=== PATIENT | female | born 1945 | race Caucasian/White ===

== ENCOUNTER 2016-06-06 01:08 | Emergency (ER) | payer MEDICARE ==
[~2016-06-06] VITALS: Ht 160 cm; Wt 54.0 kg
[~2016-06-06 01:08] MED LIST: /PANT40TA PO; BEANTAB2 PO; DIOV80TA2 PO; ESTR PV; FISH1000 PO; FLUO20CA8 PO; LORA10TA2 PO; SYSTANE; VESI5TAB PO; [UNRECOGNIZED DRUG - CODE] OP; [UNRECOGNIZED DRUG - CODE] PO; premarin PO
[2016-06-06] MEDS ORDERED: VALS1TAB46 PO (01:41)
[2016-06-06] MEDS ORDERED: diphenhydrAMINE INJ 50MG/ML VIAL (J1200) IV STA (03:45)
[2016-06-06] MEDS ORDERED: NS 500 ML IV ONE ×2 (03:45→06:15)
[2016-06-06] MEDS ORDERED: METOCLOPRAMIDE INJ 10MG/2ML VIAL (J2765) IV ONE (03:45)
[2016-06-06 04:00] LABS: BASO % 0.1 % (0.0-1.0); EOS # 0.1 K/mm3 (0.0-0.50); LARGE UNSTAINED CELL % 0.4 % (0.0-4.0); LYMPH # 0.6 K/mm3 (1.5-4.5); LYMPH % 5.7 % (24.0-44.0); MEAN CORPUSCULAR HEMOGLOBIN 30.6 pg (27.0-33.0); MEAN CORPUSCULAR HGB CONC 32.9 g/dl (32.0-36.5); MEAN CORPUSCULAR VOLUME 93.3 fl (80.0-96.0); MONO # 0.2 K/mm3 (0.0-0.8); MONO % 2.3 % (0.0-5.0); NEUTROPHILS # 8.5 K/mm3 (1.8-7.7); NEUTROPHILS % 90.5 % (36.0-66.0); PLATELET COUNT, AUTOMATED 262 k/mm3 (150-450); RED CELL DISTRIBUTION WIDTH 12.7 % (11.5-14.5); WHITE BLOOD COUNT 9.4 K/mm3 (4.0-10.0)
[2016-06-06 04:12] LABS: ALBUMIN 3.6 GM/DL (3.2-5.2); ALBUMIN/GLOBULIN RATIO 1.06 (1.00-1.93); ALKALINE PHOSPHATASE 91 U/L (45-117); ALT/SGPT 19 U/L (12-78); AMYLASE 113 U/L (25-115); ANION GAP 13 MEQ/L (8-16); AST/SGOT 12 U/L (15-37); BILIRUBIN,DIRECT 0.1 MG/DL (0.0-0.2); BILIRUBIN,TOTAL 0.8 MG/DL (0.2-1.0); BLOOD UREA NITROGEN 14 MG/DL (7-18); CALCIUM LEVEL 8.9 MG/DL (8.8-10.2); CARBON DIOXIDE LEVEL 23 MEQ/L (21-32); CHLORIDE LEVEL 104 MEQ/L (98-107); CREATININE FOR GFR 0.86 MG/DL (0.55-1.02); GLOMERULAR FILTRATION RATE > 60.0 (>39); GLUCOSE, FASTING 120 MG/DL (83-110); POTASSIUM SERUM 3.1 MEQ/L (3.5-5.1); SODIUM LEVEL 140 MEQ/L (136-145)
[2016-06-06] MEDS ORDERED: ISOVUE-370 76% 100ML VIAL (Q9967) As Ordered ONE (04:50)
--- NOTE | 2016-06-06 05:40 | REPUSA ---
CLINICAL HISTORY: Abdominal pain. TECHNIQUE: Multiple axial, sagittal and coronal CT images were obtained through the abdomen and pelvi s after administration of intravenous contrast material. COMMENTS: Thickened, under distended stomach. Mild thickening and enhancement of the proximal small bowels. Mildly dilated fluid filled small bowels. Transition to normal caliber small bowel in the right lower quadrant. The liver is of uniform attenuation without mass or defect. There is no intra or extrahepatic biliary ductal dilatation. The spleen is normal. The gallbladder is within normal limits. The pancreas is of normal contour and attenuation characteristics. There is no evidence of adrenal mass. Both kidneys demonstrate prompt and equal nephrograms. The kidneys are normal in size, shape and conf iguration. There is no evidence of renal or ureteral mass. No renal or ureteral calculi are identifie d. There is no hydroureter or hydronephrosis. No evidence for appendicitis. There is no evidence of abdominal ascites or lymphadenopathy. There is no evidence of intrinsic or extrinsic bladder mass. There is no pelvic ascites or lymphadeno ramírez. Images of the lung bases show no evidence of pleural or parenchymal mass. There are no pleural effusi ons. Bilateral basilar atelectatic pulmonary changes. The bony structures are free of lytic or blastic lesions. Multilevel degenerative changes are seen in volving the thoracolumbar spine. Scattered calcifications are seen involving the aorta and major bran ches compatible with atherosclerosis. IMPRESSION: Gastritis. Enteritis/ileus. Clinical evaluation is suggested to exclude developing low grade partial bowel obstruction. Thickened bladder. No evidence of acute abdominal or pelvic pathology. Thank you for your kind referral of this patient.
[2016-06-06] MEDS ORDERED: REGL10TA6 PO (06:14)
[2016-06-06] MEDS ORDERED: POTASSIUM CHLORIDE 10 MEQ SR TABLET PO ONE (06:15)
[2016-06-06 06:40] VITALS: BP 117/58
== END 2016-06-06 07:02 | disposition home or self-care (01) ==
LOC: EDBD 01:08 → M ED 02:01
DX: K52.9 Noninfective gastroenteritis and colitis, unspecified (principal); I10 Essential (primary) hypertension; F41.9 Anxiety disorder, unspecified; K21.9 Gastro-esophageal reflux disease without esophagitis; G89.29 Other chronic pain; M54.9 Dorsalgia, unspecified; Z79.899 Other long term (current) drug therapy; J30.81 Allergic rhinitis due to animal (cat) (dog) hair and dander; J30.2 Other seasonal allergic rhinitis; Z88.5 Allergy status to narcotic agent; Z88.0 Allergy status to penicillin; Z88.2 Allergy status to sulfonamides; Z88.8 Allergy status to other drugs, medicaments and biological substances
CPT/HCPCS: 74177; 80048; 80076; 81001; 82150; 83605; 83690; 85025; 87086; 96361; 96374; 96375; 99283; J1200; J2765; Q9967

== ENCOUNTER → 2016-06-22 | Outpatient (REF) | payer MEDICARE ==
[~2016-06-22] MED LIST changes: +REGL10TA6 PO; +VALS1TAB46 PO
[2016-06-22 19:12] LABS: MEAN CORPUSCULAR VOLUME 90.9 fl (80.0-96.0); RED CELL DISTRIBUTION WIDTH 12.2 % (11.5-14.5); WHITE BLOOD COUNT 6.4 K/mm3 (4.0-10.0)
[2016-06-22 19:30] LABS: ALBUMIN 3.5 GM/DL (3.2-5.2); ALKALINE PHOSPHATASE 104 U/L (45-117); ALT/SGPT 18 U/L (12-78); ANION GAP 10 MEQ/L (8-16); AST/SGOT 10 U/L (15-37); BILIRUBIN,TOTAL 0.6 MG/DL (0.2-1.0); BLOOD UREA NITROGEN 13 MG/DL (7-18); CALCIUM LEVEL 9.1 MG/DL (8.8-10.2); CARBON DIOXIDE LEVEL 25 MEQ/L (21-32); CHLORIDE LEVEL 102 MEQ/L (98-107); CREATININE FOR GFR 0.87 MG/DL (0.55-1.02); GLOMERULAR FILTRATION RATE > 60.0 (>39); GLUCOSE, FASTING 74 MG/DL (83-110); POTASSIUM SERUM 4.3 MEQ/L (3.5-5.1); SODIUM LEVEL 137 MEQ/L (136-145)
== END ==
LOC: M SFHCPLAZ 16:16
PROVIDERS: ATTEND Nurse Practitioner Adult Health
DX: R19.7 Diarrhea, unspecified (principal)

== ENCOUNTER → 2017-06-25 | Outpatient (CLI) | payer MEDICARE ==
[2017-06-25 16:55] LABS: TOTAL 25(OH) VITAMIN D 72.2 NG/ML (30.0-100.0)
[2017-06-25 17:17] LABS: ALBUMIN 3.5 GM/DL (3.2-5.2); ALBUMIN/GLOBULIN RATIO 0.88 (1.00-1.93); ALKALINE PHOSPHATASE 114 U/L (45-117); ALT/SGPT 18 U/L (12-78); ANION GAP 8 MEQ/L (8-16); AST/SGOT 16 U/L (7-37); BILIRUBIN,TOTAL 0.9 MG/DL (0.2-1.0); BLOOD UREA NITROGEN 13 MG/DL (7-18); CALCIUM LEVEL 8.9 MG/DL (8.8-10.2); CARBON DIOXIDE LEVEL 27 MEQ/L (21-32); CHLORIDE LEVEL 104 MEQ/L (98-107); CHOLESTEROL LEVEL 261 MG/DL (<200); CHOLESTEROL RISK RATIO 2.485 (<5); GLOMERULAR FILTRATION RATE > 60.0 (>39); GLUCOSE, FASTING 77 MG/DL (70-100); HDL CHOLESTEROL 105 MG/DL (>40); LDL CHOLESTEROL 144.4 MG/DL (<100); NON-HDL-C 156 MG/DL; POTASSIUM SERUM 4.3 MEQ/L (3.5-5.1); SODIUM LEVEL 139 MEQ/L (136-145); TOTAL PROTEIN 7.5 GM/DL (6.4-8.2); TRIGLYCERIDES LEVEL 58 MG/DL (<150)
== END ==
LOC: M WUC 15:20
DX: Z00.00 Encounter for general adult medical examination without abnormal findings (principal); E55.9 Vitamin D deficiency, unspecified; E78.00 Pure hypercholesterolemia, unspecified
CPT/HCPCS: 84443

== ENCOUNTER → 2018-07-10 | Outpatient (REF) | payer MEDICARE ==
[~2018-07-10] MED LIST changes: -/PANT40TA PO; -ESTR PV; +ESTR1CRE PV; +PROT1TAB2 PO; -VALS1TAB46 PO; +VALS1TAB66 PO
[2018-07-10 18:56] LABS: ALBUMIN 3.6 GM/DL (3.2-5.2); ALT/SGPT 19 U/L (12-78); BILIRUBIN,TOTAL 0.6 MG/DL (0.2-1.0); BLOOD UREA NITROGEN 15 MG/DL (7-18); CALCIUM LEVEL 8.7 MG/DL (8.8-10.2); CARBON DIOXIDE LEVEL 28 MEQ/L (21-32); CHLORIDE LEVEL 107 MEQ/L (98-107); CHOLESTEROL LEVEL 275 MG/DL (<200); CHOLESTEROL RISK RATIO 2.522 (<5); CREATININE FOR GFR 0.73 MG/DL (0.55-1.30); GLOMERULAR FILTRATION RATE > 60.0 (>39); GLUCOSE, FASTING 80 MG/DL (70-100); HDL CHOLESTEROL 109 MG/DL (>40); LDL CHOLESTEROL 155 MG/DL (<100); MAGNESIUM LEVEL 1.9 MG/DL (1.8-2.4); NON-HDL-C 166 MG/DL; POTASSIUM SERUM 4.1 MEQ/L (3.5-5.1); SODIUM LEVEL 139 MEQ/L (136-145); THYROID STIMULATING HORMONE 0.799 uIU/ML (0.358-3.740); TOTAL PROTEIN 6.9 GM/DL (6.4-8.2); TRIGLYCERIDES LEVEL 55 MG/DL (<150)
[2018-07-10 20:56] LABS: TOTAL 25(OH) VITAMIN D 69.6 NG/ML (30.0-100.0)
== END ==
LOC: M SFHCPLAZ 15:41
PROVIDERS: ATTEND Nurse Practitioner Adult Health
DX: Z00.00 Encounter for general adult medical examination without abnormal findings (principal); E55.9 Vitamin D deficiency, unspecified; K21.9 Gastro-esophageal reflux disease without esophagitis; E78.00 Pure hypercholesterolemia, unspecified

== ENCOUNTER → 2018-11-14 | Outpatient (REF) | payer MEDICARE ==
[2018-11-14 13:49] LABS: BASO % 0.7 % (0.0-1.0); EOS # 0.2 10^3/uL (0.0-0.5); EOS % 4.4 % (0.0-3.0); HEMATOCRIT 35.3 % (36.0-47.0); HEMOGLOBIN 11.2 g/dl (12.0-15.5); LYMPH # 1.1 10^3/uL (1.5-5.0); LYMPH % 24.3 % (24.0-44.0); MEAN CORPUSCULAR HEMOGLOBIN 28.1 pg (27.0-33.0); MEAN CORPUSCULAR HGB CONC 31.7 g/dl (32.0-36.5); MEAN CORPUSCULAR VOLUME 88.7 fl (80.0-96.0); MONO # 0.5 10^3/uL (0.0-0.8); NEUTROPHILS # 2.5 10^3/uL (1.5-8.5); NEUTROPHILS % 58.4 % (36.0-66.0); PLATELET COUNT, AUTOMATED 286 10^3/uL (150-450); RED BLOOD COUNT 3.98 10^6/uL (4.00-5.40); WHITE BLOOD COUNT 4.3 10^3/uL (4.0-10.0)
[2018-11-14 14:12] LABS: HEMOGLOBIN A1c 5.6 %
[2018-11-14 14:24] LABS: ALBUMIN 3.4 GM/DL (3.2-5.2); ALT/SGPT 21 U/L (12-78); BILIRUBIN,TOTAL 0.4 MG/DL (0.2-1.0); BLOOD UREA NITROGEN 18 MG/DL (7-18); CALCIUM LEVEL 8.9 MG/DL (8.8-10.2); CARBON DIOXIDE LEVEL 30 MEQ/L (21-32); CHLORIDE LEVEL 103 MEQ/L (98-107); CREATININE FOR GFR 0.77 MG/DL (0.55-1.30); FOLATE > 24.0 NG/ML; GLOMERULAR FILTRATION RATE > 60.0 (>39); GLUCOSE, FASTING 77 MG/DL (70-100); POTASSIUM SERUM 4.3 MEQ/L (3.5-5.1); RHEUMATOID FACTOR QUANT < 10.0 IU/ML (<15.0); SODIUM LEVEL 139 MEQ/L (136-145); THYROID STIMULATING HORMONE 0.983 uIU/ML (0.358-3.740); TOTAL PROTEIN 7.3 GM/DL (6.4-8.2); VITAMIN B12 LEVEL 780 PG/ML
[2018-11-14 14:36] LABS: ERYTHROCYTE SEDIMENTATION RATE 14 mm/hr (0-30)
[2018-11-19 00:07] LABS: ANCA-ATYPICAL <1:20 titer (Neg:<1:20); ANTINUCLEAR ANTIBODIES DIRECT Negative (Negative); CYTOPLASMIC NEUTROP AB ANCA-C <1:20 titer (Neg:<1:20); PERINUCLEAR AB ANCA-P <1:20 titer (Neg:<1:20); SJOGREN'S ANTI SS-A <0.2 AI (0.0-0.9); SJOGREN'S ANTI SS-B <0.2 AI (0.0-0.9)
[2018-11-19 08:06] LABS: VITAMIN B1 LEVEL WHOLE BLOOD 81.5 nmol/L (66.5-200.0); VITAMIN B6,PYRIDOXAL PHOSPHATE 29.2 ug/L (2.0-32.8)
[2018-11-19 10:59] LABS: DRVV SCREEN 32.3 SEC
[2018-11-19 11:02] LABS: PTT LUPUS TYPE ANTICOAG SCREEN 0.8 (0-1.2)
[2018-11-20 15:34] LABS: ANTI DS-DNA AB <1:10 titer (.); VITAMIN E(ALPHA TOCOPHEROL) 20.2 mg/L (9.0-29.0); VITAMIN E(GAMMA TOCOPHEROL) 0.6 mg/L (0.5-4.9)
== END ==
LOC: M LABDRAWP 11:24
PROVIDERS: ATTEND Psychiatry & Neurology Neurology
DX: R41.9 Unspecified symptoms and signs involving cognitive functions and awareness (principal); Z79.899 Other long term (current) drug therapy

== ENCOUNTER → 2019-01-29 | Outpatient (CLI) | payer MEDICARE ==
--- NOTE | 2019-01-29 14:31 | REP ---
THYROID ULTRASOUND: Real-time sonographic evaluation of the thyroid performed. Right ovary measures 3.8 x 1.3 x 0.7 cm and left lobe 3.7 x 1.7 x 1.6 cm. Hypoechoic nodule in the lower right lobe measures 4 mm in diameter. Two hypoechoic nodules in the isthmus measure 7 x 6 x 3 mm and 5 x 6 x 3 mm. In the left lower pole, there is a mix solid and cystic nodule which measures 2.2 x 1.2 x 1.4 cm. IMPRESSION: Thyroid nodules as above. According to TI-RADS criteria, 6-month followup ultrasound is recommended. Electronically Signed by Tao Gonzalez MD 01/29/2019 03:40 P
== END ==
LOC: M RAD 12:42
PROVIDERS: ATTEND Physician Assistant Medical
DX: D34 Benign neoplasm of thyroid gland (principal)

== ENCOUNTER → 2019-02-17 | Outpatient (REF) | payer MEDICARE | LOC: M LAB REF 19:10 | PROVIDERS: ATTEND Internal Medicine Endocrinology, Diabetes & Metabolism | DX: E04.2 Nontoxic multinodular goiter (principal) ==

== ENCOUNTER → 2019-04-29 | Outpatient (REF) | payer MEDICARE | LOC: M SFHCWAGY 17:12 | PROVIDERS: ATTEND Nurse Practitioner Women's Health | DX: Z12.4 Encounter for screening for malignant neoplasm of cervix (principal); N95.2 Postmenopausal atrophic vaginitis ==

== ENCOUNTER → 2019-08-07 | Outpatient (REF) | payer MEDICARE | LOC: M LAB REF 17:07 | PROVIDERS: ATTEND Internal Medicine Endocrinology, Diabetes & Metabolism | DX: E04.2 Nontoxic multinodular goiter (principal) ==

== ENCOUNTER → 2019-10-13 | Outpatient (REF) | payer MEDICARE ==
[2019-11-26 15:35] LABS: BLOOD UREA NITROGEN 13 MG/DL (7-18); CALCIUM LEVEL 9.3 MG/DL (8.8-10.2); CARBON DIOXIDE LEVEL 28 MEQ/L (21-32); CHLORIDE LEVEL 104 MEQ/L (98-107); CREATININE FOR GFR 0.91 MG/DL (0.55-1.30); GLOMERULAR FILTRATION RATE > 60.0 (>39); GLUCOSE, FASTING 116 MG/DL (70-100); POTASSIUM SERUM 4.3 MEQ/L (3.5-5.1); SODIUM LEVEL 139 MEQ/L (136-145); TOTAL 25(OH) VITAMIN D 57.6 NG/ML (30.0-100.0)
== END ==
LOC: M WUC 11:26
PROVIDERS: ATTEND Nurse Practitioner Family
DX: M81.0 Age-related osteoporosis without current pathological fracture (principal)

== ENCOUNTER → 2020-02-09 | Outpatient (CLI) | payer MEDICARE ==
[2020-02-09 16:08] LABS: BLOOD UREA NITROGEN 19 MG/DL (7-18); CALCIUM LEVEL 9.8 MG/DL (8.8-10.2); CARBON DIOXIDE LEVEL 31 MEQ/L (21-32); CHLORIDE LEVEL 105 MEQ/L (98-107); CREATININE FOR GFR 0.83 MG/DL (0.55-1.30); GLOMERULAR FILTRATION RATE > 60.0 (>39); GLUCOSE, FASTING 116 MG/DL (70-100); POTASSIUM SERUM 3.7 MEQ/L (3.5-5.1); SODIUM LEVEL 138 MEQ/L (136-145)
== END ==
LOC: M WUC 14:33
PROVIDERS: ATTEND Internal Medicine Endocrinology, Diabetes & Metabolism
DX: M81.0 Age-related osteoporosis without current pathological fracture (principal)

== ENCOUNTER → 2020-07-27 | Outpatient (REF) | payer MEDICARE ==
[2020-07-27 18:13] LABS: ALBUMIN 3.5 GM/DL (3.2-5.2); ALT/SGPT 29 U/L (12-78); BILIRUBIN,TOTAL 0.7 MG/DL (0.2-1.0); BLOOD UREA NITROGEN 20 MG/DL (7-18); CALCIUM LEVEL 9.6 MG/DL (8.8-10.2); CARBON DIOXIDE LEVEL 29 MEQ/L (21-32); CHLORIDE LEVEL 105 MEQ/L (98-107); CHOLESTEROL LEVEL 276 MG/DL (<200); CHOLESTEROL RISK RATIO 2.442 (<5); CREATININE FOR GFR 0.81 MG/DL (0.55-1.30); GLOMERULAR FILTRATION RATE > 60.0 (>39); GLUCOSE, FASTING 61 MG/DL (70-100); HDL CHOLESTEROL 113 MG/DL (>40); LDL CHOLESTEROL 154 MG/DL (<100); NON-HDL-C 163 MG/DL; POTASSIUM SERUM 3.9 MEQ/L (3.5-5.1); SODIUM LEVEL 140 MEQ/L (136-145); THYROID STIMULATING HORMONE 0.596 uIU/ML (0.358-3.740); TOTAL 25(OH) VITAMIN D 59.6 NG/ML (30.0-100.0); TOTAL PROTEIN 7.2 GM/DL (6.4-8.2); TRIGLYCERIDES LEVEL 46 MG/DL (<150)
== END ==
LOC: M SFHCPLAZ 14:40
PROVIDERS: ATTEND Nurse Practitioner Adult Health
DX: E55.9 Vitamin D deficiency, unspecified (principal); E78.00 Pure hypercholesterolemia, unspecified; E04.1 Nontoxic single thyroid nodule; I10 Essential (primary) hypertension

== ENCOUNTER → 2020-10-11 | Outpatient (CLI) | payer MEDICARE ==
[2020-10-11 18:29] LABS: BLOOD UREA NITROGEN 19 MG/DL (7-18); CALCIUM LEVEL 9.2 MG/DL (8.8-10.2); CARBON DIOXIDE LEVEL 28 MEQ/L (21-32); CHLORIDE LEVEL 107 MEQ/L (98-107); CREATININE FOR GFR 0.74 MG/DL (0.55-1.30); GLOMERULAR FILTRATION RATE > 60.0 (>39); GLUCOSE, FASTING 92 MG/DL (70-100); POTASSIUM SERUM 4.4 MEQ/L (3.5-5.1); SODIUM LEVEL 141 MEQ/L (136-145)
[2020-10-11 18:40] LABS: TOTAL 25(OH) VITAMIN D 63.5 NG/ML (30.0-100.0)
== END ==
LOC: M LAB 17:21
PROVIDERS: ATTEND Internal Medicine Endocrinology, Diabetes & Metabolism
DX: M81.0 Age-related osteoporosis without current pathological fracture (principal)

== ENCOUNTER → 2021-06-30 | Outpatient (CLI) | payer MEDICARE | LOC: M WHC 13:57 | PROVIDERS: ATTEND Nurse Practitioner Adult Health | DX: E04.1 Nontoxic single thyroid nodule (principal) ==

== ENCOUNTER → 2021-11-28 | Outpatient (CLI) | payer MEDICARE | LOC: M WUC 15:41 | PROVIDERS: ATTEND Physician Assistant | DX: M54.6 Pain in thoracic spine (principal) ==

== ENCOUNTER → 2022-01-06 | Outpatient (CLI) | payer MEDICARE | LOC: M RAD 17:15 | PROVIDERS: ATTEND Nurse Practitioner Adult Health | DX: S09.90XA Unspecified injury of head, initial encounter (principal); W19.XXXA Unspecified fall, initial encounter ==

== ENCOUNTER → 2022-09-15 | Outpatient (REF) | payer MEDICARE | LOC: M WUC 19:56 | PROVIDERS: ATTEND Physician Assistant | DX: R30.0 Dysuria (principal) ==

== ENCOUNTER → 2023-02-28 | Outpatient (REF) | payer MEDICARE ==
[2023-02-28 15:55] LABS: RSV AMPLIFICATION NEGATIVE (NEGATIVE)
== END ==
PROVIDERS: ATTEND Nurse Practitioner Adult Health
DX: R09.89 Other specified symptoms and signs involving the circulatory and respiratory systems (principal)

== ENCOUNTER → 2023-07-09 | Outpatient (REF) | payer MEDICARE ==
[2023-07-09 11:22] LABS: HEMATOCRIT 39.5 % (36.0-47.0); HEMOGLOBIN 13.1 g/dl (12.0-15.5); MEAN CORPUSCULAR HEMOGLOBIN 31.3 pg (27.0-33.0); MEAN CORPUSCULAR HGB CONC 33.2 g/dl (32.0-36.5); MEAN CORPUSCULAR VOLUME 94.3 fl (80.0-96.0); PLATELET COUNT, AUTOMATED 241 10^3/uL (150-450); RED BLOOD COUNT 4.19 10^6/uL (4.00-5.40); WHITE BLOOD COUNT 5.3 10^3/uL (4.0-10.0)
[2023-07-09 11:50] LABS: FREE T4 1.03 NG/DL (0.89-1.76)
[2023-07-09 11:51] LABS: ALBUMIN 3.1 G/DL (3.2-5.2); ALKALINE PHOSPHATASE 101 U/L (46-116); ALT/SGPT 18 U/L (7.0-40); AST/SGOT 10 U/L (<34); BLOOD UREA NITROGEN 19 MG/DL (9-23); CALCIUM LEVEL 9.1 MG/DL (8.3-10.6); CARBON DIOXIDE LEVEL 26 MMOL/L (20-31); CHLORIDE LEVEL 108 MMOL/L (98-107); CHOLESTEROL LEVEL 234 MG/DL (<200); CHOLESTEROL RISK RATIO 3.18 (<5); CREATININE FOR GFR 0.85 MG/DL (0.55-1.30); FERRITIN 22.3 NG/ML (7.3-270.7); GLOMERULAR FILTRATION RATE > 60.0 (>39); GLUCOSE, FASTING 82 MG/DL (74-106); HDL CHOLESTEROL 73.5 MG/DL (>40); LDL CHOLESTEROL 148.7 MG/DL (<100); MAGNESIUM LEVEL 1.9 MG/DL (1.8-2.4); NON-HDL-C 160.5 MG/DL; POTASSIUM SERUM 4.4 MMOL/L (3.5-5.1); SODIUM LEVEL 140 MMOL/L (136-145); TOTAL 25(OH) VITAMIN D 66.2 NG/ML (20.0-100.0); TOTAL PROTEIN 6.2 G/DL (5.7-8.2); TRIGLYCERIDES LEVEL 59 MG/DL (<150)
== END ==
PROVIDERS: ATTEND Nurse Practitioner Adult Health
DX: F41.9 Anxiety disorder, unspecified (principal); I10 Essential (primary) hypertension; K21.9 Gastro-esophageal reflux disease without esophagitis; E78.00 Pure hypercholesterolemia, unspecified; Z79.899 Other long term (current) drug therapy; Z86.39 Personal history of other endocrine, nutritional and metabolic disease

== ENCOUNTER → 2023-11-21 | Outpatient (CLI) | payer MEDICARE ==
[2023-11-21 15:07] LABS: HEMATOCRIT 39.5 % (36.0-47.0); HEMOGLOBIN 13.1 g/dl (12.0-15.5); MEAN CORPUSCULAR HEMOGLOBIN 31.3 pg (27.0-33.0); MEAN CORPUSCULAR HGB CONC 33.2 g/dl (32.0-36.5); MEAN CORPUSCULAR VOLUME 94.5 fl (80.0-96.0); PLATELET COUNT, AUTOMATED 247 10^3/uL (150-450); RED BLOOD COUNT 4.18 10^6/uL (4.00-5.40); WHITE BLOOD COUNT 6.6 10^3/uL (4.0-10.0)
[2023-11-21 15:37] LABS: ALBUMIN 3.6 G/DL (3.2-5.2); ALKALINE PHOSPHATASE 108 U/L (46-116); ALT/SGPT 16 U/L (7.0-40); AST/SGOT 10 U/L (<34); BLOOD UREA NITROGEN 18 MG/DL (9-23); CARBON DIOXIDE LEVEL 28 MMOL/L (20-31); CHLORIDE LEVEL 107 MMOL/L (98-107); CHOLESTEROL LEVEL 285 MG/DL (<200); CHOLESTEROL RISK RATIO 4.31 (<5); CREATININE FOR GFR 0.85 MG/DL (0.55-1.30); GLOMERULAR FILTRATION RATE > 60.0 (>39); GLUCOSE, FASTING 86 MG/DL (74-106); HDL CHOLESTEROL 66.1 MG/DL (>40); LDL CHOLESTEROL 187.9 MG/DL (<100); NON-HDL-C 218.9 MG/DL; POTASSIUM SERUM 4.2 MMOL/L (3.5-5.1); SODIUM LEVEL 140 MMOL/L (136-145); TOTAL PROTEIN 6.8 G/DL (5.7-8.2); TRIGLYCERIDES LEVEL 155 MG/DL (<150)
[2023-11-21 15:38] LABS: FERRITIN 34.6 NG/ML (7.3-270.7); FREE T4 1.15 NG/DL (0.89-1.76); THYROID STIMULATING HORMONE 0.521 uIU/ML (0.55-4.78); TOTAL 25(OH) VITAMIN D 70.2 NG/ML (20.0-100.0)
[2023-11-21 15:39] LABS: VITAMIN B12 LEVEL 818 PG/ML (211-911)
== END ==
LOC: M PLALAB 14:02
PROVIDERS: ATTEND Nurse Practitioner Adult Health
DX: F41.9 Anxiety disorder, unspecified (principal); I10 Essential (primary) hypertension; E78.00 Pure hypercholesterolemia, unspecified; R53.83 Other fatigue; E55.9 Vitamin D deficiency, unspecified

== ENCOUNTER 2023-12-01 12:28 | Emergency (ER) | payer MEDICARE ==
[~2023-12-01] VITALS: Ht 167.6 cm; Wt 49.1 kg
[2023-12-01 13:14] LABS: BASO % 0.5 % (0.0-1.0); EOS # 0.2 10^3/uL (0.0-0.5); EOS % 2.5 % (0.0-3.0); HEMATOCRIT 41.1 % (36.0-47.0); HEMOGLOBIN 13.8 g/dl (12.0-15.5); LYMPH # 1.1 10^3/uL (1.5-5.0); LYMPH % 18.3 % (24.0-44.0); MEAN CORPUSCULAR HEMOGLOBIN 31.6 pg (27.0-33.0); MEAN CORPUSCULAR HGB CONC 33.6 g/dl (32.0-36.5); MEAN CORPUSCULAR VOLUME 94.1 fl (80.0-96.0); MONO # 0.5 10^3/uL (0.0-0.8); NEUTROPHILS # 4.2 10^3/uL (1.5-8.5); NEUTROPHILS % 70.4 % (36.0-66.0); PLATELET COUNT, AUTOMATED 244 10^3/uL (150-450); RED BLOOD COUNT 4.37 10^6/uL (4.00-5.40)
[2023-12-01 13:44] LABS: ALBUMIN 3.7 G/DL (3.2-5.2); ALKALINE PHOSPHATASE 121 U/L (46-116); ALT/SGPT 18 U/L (7.0-40); AST/SGOT 16 U/L (<34); BILIRUBIN,DIRECT 0.2 MG/DL (<0.4); BILIRUBIN,TOTAL 0.9 MG/DL (0.3-1.2); BLOOD UREA NITROGEN 16 MG/DL (9-23); CALCIUM LEVEL 9.6 MG/DL (8.3-10.6); CARBON DIOXIDE LEVEL 27 MMOL/L (20-31); CHLORIDE LEVEL 105 MMOL/L (98-107); CK-MB VALUE MASS < 1.0 NG/ML (<3.6); CREATININE FOR GFR 0.76 MG/DL (0.55-1.30); GLOMERULAR FILTRATION RATE > 60.0 (>39); GLUCOSE, FASTING 84 MG/DL (74-106); POTASSIUM SERUM 4.3 MMOL/L (3.5-5.1); SODIUM LEVEL 137 MMOL/L (136-145)
[2023-12-01 13:51] LABS: CPK CREATINE PHOSPHOKINASE 36 U/L (34-145); MB/CK RELATIVE INDEX 2.77 (< OR =4)
[2023-12-01 16:13] LABS: CK-MB VALUE MASS < 1.0 NG/ML (<3.6)
[2023-12-01 16:14] LABS: CPK CREATINE PHOSPHOKINASE 36 U/L (34-145); MB/CK RELATIVE INDEX 2.77 (< OR =4)
[2023-12-01 16:38] VITALS: BP 152/71; TEMP 98.4; O2SAT 98
== END 2023-12-01 16:55 | disposition home or self-care (01) ==
LOC: M ED 12:28 → EDBD 12:28 → M ED 16:55
DX: R07.9 Chest pain, unspecified (principal); R00.1 Bradycardia, unspecified; K58.9 Irritable bowel syndrome, unspecified; K21.9 Gastro-esophageal reflux disease without esophagitis; F03.90 Unspecified dementia, unspecified severity, without behavioral disturbance, psychotic disturbance, mood disturbance, and anxiety; Z88.0 Allergy status to penicillin; Z88.1 Allergy status to other antibiotic agents; Z88.5 Allergy status to narcotic agent; Z88.2 Allergy status to sulfonamides; Z88.8 Allergy status to other drugs, medicaments and biological substances; Z91.048 Other nonmedicinal substance allergy status; Z79.899 Other long term (current) drug therapy

== ENCOUNTER → 2024-02-04 | Outpatient (CLI) | payer MEDICARE ==
[2024-02-04 20:47] LABS: ALBUMIN 3.8 G/DL (3.2-5.2); BILIRUBIN,TOTAL 0.9 MG/DL (0.3-1.2); CALCIUM LEVEL 10.4 MG/DL (8.3-10.6); CREATININE FOR GFR 1.19 MG/DL (0.55-1.30); GLOMERULAR FILTRATION RATE 46.8 (>39); POTASSIUM SERUM 4.7 MMOL/L (3.5-5.1); TOTAL PROTEIN 7.1 G/DL (5.7-8.2)
== END ==
LOC: M PLALAB 14:53
PROVIDERS: ATTEND Nurse Practitioner Adult Health
DX: I10 Essential (primary) hypertension (principal)

== ENCOUNTER → 2024-06-24 | Outpatient (REF) | payer MEDICARE | LOC: M SFHCPLAZ 17:33 | PROVIDERS: ATTEND Nurse Practitioner Adult Health | DX: R41.0 Disorientation, unspecified (principal) ==

== ENCOUNTER 2024-11-19 08:35 | Inpatient (IN) | payer MEDICARE ==
[~2024-11-19] VITALS: Ht 167.6 cm; Wt 52.9 kg
[2024-11-19 09:15] LABS: BASO # 0.0 10^3/uL (0.0-0.2); BASO % 0.4 % (0.0-1.0); EOS # 0.2 10^3/uL (0.0-0.5); EOS % 2.1 % (0.0-3.0); LYMPH # 0.7 10^3/uL (1.5-5.0); LYMPH % 7.9 % (24.0-44.0); MONO # 0.9 10^3/uL (0.0-0.8); MONO % 9.6 % (2.0-8.0); NEUTROPHILS # 7.3 10^3/uL (1.5-8.5); NEUTROPHILS % 79.5 % (36.0-66.0); PLATELET COUNT, AUTOMATED 300 10^3/uL (150-450)
[2024-11-19] MEDS: ACETAMINOPHEN *IV* 1,000 MG in IV 1 EA IV ONE (09:19)
[2024-11-19 09:24] LABS: INR 0.95
[2024-11-19] MEDS ORDERED: BUSP15TA47 PO (09:31)
[2024-11-19] MEDS ORDERED: REXU1TAB4 PO (09:31)
[2024-11-19] MEDS ORDERED: FLUO40CA PO (09:31)
[2024-11-19] MEDS ORDERED: VIAC1CHW PO (09:31)
[2024-11-19] MEDS ORDERED: D-20TAB PO (09:31)
[2024-11-19] MEDS ORDERED: PANT40TA29 PO (09:31)
[2024-11-19] MEDS ORDERED: SERO1TAB3 PO (09:31)
[2024-11-19] MEDS ORDERED: THERTAB52 PO (09:31)
[2024-11-19] MEDS ORDERED: HOME MED LIST COMPLETE! XX SCH (09:35)
[2024-11-19 09:47] LABS: CK-MB VALUE MASS 1.5 NG/ML (<3.6)
[2024-11-19 09:48] LABS: CPK CREATINE PHOSPHOKINASE 47.0 U/L (34-145); MB/CK RELATIVE INDEX 3.19 (< OR =4)
[2024-11-19 09:49] LABS: ALT/SGPT 21.0 U/L (7.0-40); AST/SGOT 18.0 U/L (<34); CALCIUM LEVEL 9.5 MG/DL (8.3-10.6); CARBON DIOXIDE LEVEL 27.0 MMOL/L (20-31); CHLORIDE LEVEL 104.0 MMOL/L (98-107); CREATININE FOR GFR 0.83 MG/DL (0.55-1.30); GLOMERULAR FILTRATION RATE 72.1 (>39); POTASSIUM SERUM 4.2 MMOL/L (3.5-5.1); SODIUM LEVEL 136.0 MMOL/L (136-145)
[2024-11-19 10:50] LABS: CK-MB VALUE MASS 1.1 NG/ML (<3.6)
[2024-11-19 10:57] LABS: CPK CREATINE PHOSPHOKINASE 46.0 U/L (34-145); MB/CK RELATIVE INDEX 2.39 (< OR =4)
[2024-11-19] MEDS ORDERED: KETOROLAC 30 MG/ML 1 ML VIAL IV PRN (11:10)
[2024-11-19] MEDS: NS (Normal Saline) 0.9% 1,000 ML IV ONE (11:18)
[2024-11-19] MEDS: MORPHINE 2 MG/ML 1 ML VIAL IV ONE (11:26)
[2024-11-19] MEDS: D5W/0.45% SODIUM CHLORIDE 1,000 ML IV SCH (11:27)
[2024-11-19] MEDS: hydrALAZINE 20 MG/ML 1 ML VIAL IV STA (13:14)
[2024-11-19] MEDS: NITROGLYCERIN 2% OINT 1 GM *U/D* PKT TOP ONE (14:08)
[2024-11-19 14:58] LABS: KETONE, URINE AUTO RFX NEGATIVE (NEGATIVE); LEUKOCYTE ESTERASE UR AUTO RFX NEGATIVE (NEGATIVE); NITRITE, URINE AUTO RFX NEGATIVE (NEGATIVE); RBC, URINE AUTO RFX 1 /HPF (0-3); SQUAM EPITHELIAL CELL UR AURFX 0 /HPF (0-6); WBC, URINE AUTO RFX 1 /HPF (0-3)
[2024-11-19] MEDS ORDERED: MORPHINE 4 MG/ML 1 ML VIAL IV PRN (15:30)
[2024-11-19] MEDS ORDERED: ROCURONIUM BROMIDE 50MG/5ML VIAL As Ordered ONE (15:35)
[2024-11-19] MEDS ORDERED: LIDOCAINE 2% 100 MG/5 ML SDV (FOR ANES.) As Ordered ONE (15:35)
[2024-11-19] MEDS ORDERED: SUGAMMADEX SODIUM 200 MG/2 ML VIAL As Ordered ONE (15:36)
[2024-11-19] MEDS ORDERED: dexAMETHasone 4 MG/ML 1 ML VIAL As Ordered ONE (15:36)
[2024-11-19] MEDS ORDERED: ONDANSETRON 4MG 2ML VIAL As Ordered ONE (15:36)
[2024-11-19] MEDS: TRANEXAMIC ACID 100 MG/ML 10ML VIAL As Ordered ONE (16:55)
[2024-11-19] MEDS ORDERED: PHENYLephrine 500MCG 5ML (100MCG/ML) SYRINGE As Ordered ONE (17:11)
[2024-11-19] MEDS ORDERED: HYDROmorphone HCL 2 MG/ML 1 ML VIAL As Ordered ONE (17:26)
[2024-11-19] MEDS ORDERED: KETOROLAC 30 MG/ML 1 ML VIAL As Ordered ONE (17:55)
[2024-11-19] MEDS: VANCOMYCIN 1000MG/20ML VIAL As Ordered ONE (17:55)
[2024-11-19] MEDS: hydrALAZINE 20 MG/ML 1 ML VIAL IV SCH (18:00)
[2024-11-19] MEDS ORDERED: HYDROMORPHONE HCL 0.5 MG/0.5 ML SYRINGE IV PRN (18:05)
[2024-11-19] MEDS ORDERED: ONDANSETRON 4MG 2ML VIAL IV PRN (18:05)
[2024-11-19] MEDS ORDERED: LABETALOL 100 MG/20 ML VIAL As Ordered ONE (18:11)
[2024-11-19] MEDS ORDERED: hydrALAZINE 20 MG/ML 1 ML VIAL IV PRN (18:25)
[2024-11-19] MEDS: ONDANSETRON 4MG 2ML VIAL IV PRN (20:02)
[2024-11-19 20:07] VITALS: BP 129/61; TEMP 97.5; O2SAT 99
[2024-11-19 20:30] VITALS: BP 111/55; TEMP 97; O2SAT 99
[2024-11-19 22:14] VITALS: BP 105/54; TEMP 96.8; O2SAT 99
[2024-11-19 23:20] VITALS: BP 97/54; TEMP 97.6; O2SAT 98
[2024-11-19] MEDS: ceFAZolin SOD 1 GM in DEXTROSE 5% (D5W) ADV/MINI-BAG 50 ML IV SCH (23:23)
[2024-11-20 04:07] VITALS: BP 117/58; TEMP 97.5; O2SAT 99
[2024-11-20 06:22] LABS: PLATELET COUNT, AUTOMATED 241 10^3/uL (150-450)
[2024-11-20 07:01] LABS: CALCIUM LEVEL 7.9 MG/DL (8.3-10.6); CARBON DIOXIDE LEVEL 23.0 MMOL/L (20-31); CHLORIDE LEVEL 104.0 MMOL/L (98-107); CREATININE FOR GFR 0.72 MG/DL (0.55-1.30); GLOMERULAR FILTRATION RATE 85.5 (>39); POTASSIUM SERUM 4.1 MMOL/L (3.5-5.1); SODIUM LEVEL 134.0 MMOL/L (136-145)
[2024-11-20 08:00] VITALS: BP 123/56; TEMP 97.4
[2024-11-20] MEDS: ACETAMINOPHEN 500 MG TAB PO SCH (08:42)
[2024-11-20] MEDS: **hydrALAZINE** 10 MG TAB PO SCH (08:43)
[2024-11-20 15:51] VITALS: BP 131/60; TEMP 97.1; O2SAT 93
[2024-11-20] MEDS: ENOXAPARIN 40 MG/0.4 ML SYRINGE (J1650 PER 10MG) SC SCH (18:03)
[2024-11-20 19:20] VITALS: BP 124/59; TEMP 98.6; O2SAT 93
[2024-11-20] MEDS: amLODIPine 10 MG TAB PO SCH (20:02)
[2024-11-20] MEDS: MORPHINE 4 MG/ML 1 ML VIAL IV ONE (20:30)
[2024-11-21 03:22] VITALS: BP 150/67; TEMP 97.5; O2SAT 90
[2024-11-21 06:30] LABS: PLATELET COUNT, AUTOMATED 255 10^3/uL (150-450)
[2024-11-21 06:56] LABS: CALCIUM LEVEL 8.6 MG/DL (8.3-10.6); CARBON DIOXIDE LEVEL 25.0 MMOL/L (20-31); CHLORIDE LEVEL 104.0 MMOL/L (98-107); CREATININE FOR GFR 0.7 MG/DL (0.55-1.30); GLOMERULAR FILTRATION RATE 88.5 (>39); POTASSIUM SERUM 4.3 MMOL/L (3.5-5.1); SODIUM LEVEL 136.0 MMOL/L (136-145)
[2024-11-21 07:58] VITALS: BP 122/56; TEMP 98.1; O2SAT 92
[2024-11-21] MEDS ORDERED: PILL CUTTER 1 EACH XX ONE (08:05)
[2024-11-21 13:26] LABS: ERYTHROCYTE SEDIMENTATION RATE 28 mm/hr (0-30)
[2024-11-21 13:34] LABS: C REACTIVE PROTEIN QUANTITATIV 13.15 MG/DL (<1.0)
[2024-11-21 15:50] VITALS: BP 121/59; TEMP 98.5; O2SAT 94
[2024-11-21 16:52] LABS: KETONE, URINE AUTO RFX NEGATIVE (NEGATIVE); LEUKOCYTE ESTERASE UR AUTO RFX NEGATIVE (NEGATIVE); MUCUS, URINE RFX SMALL (NEGATIVE); NITRITE, URINE AUTO RFX NEGATIVE (NEGATIVE); RBC, URINE AUTO RFX 28 /HPF (0-3); SQUAM EPITHELIAL CELL UR AURFX 0 /HPF (0-6); WBC, URINE AUTO RFX 3 /HPF (0-3)
[2024-11-21 19:37] VITALS: BP 119/58; TEMP 97.9; O2SAT 94
[2024-11-22 04:29] VITALS: BP 146/66; TEMP 98.5; O2SAT 95
[2024-11-22 05:51] LABS: PLATELET COUNT, AUTOMATED 244 10^3/uL (150-450)
[2024-11-22 06:19] LABS: CALCIUM LEVEL 8.3 MG/DL (8.3-10.6); CARBON DIOXIDE LEVEL 27 MMOL/L (20-31); CHLORIDE LEVEL 103 MMOL/L (98-107); CREATININE FOR GFR 0.60 MG/DL (0.55-1.30); GLOMERULAR FILTRATION RATE > 90.0 (>39); POTASSIUM SERUM 4.2 MMOL/L (3.5-5.1); SODIUM LEVEL 136 MMOL/L (136-145)
[2024-11-22 09:31] VITALS: BP 130/75; TEMP 98.2; O2SAT 96
[2024-11-22] MEDS ORDERED: ACET-683 PO (10:27)
[2024-11-22] MEDS ORDERED: AMLO1TAB25 PO (10:27)
[2024-11-22] MEDS ORDERED: HYDR-161 PO (10:27)
[2024-11-22] MEDS ORDERED: OXYC-517 PO (10:27)
[2024-11-22 12:00] VITALS: BP 138/65; TEMP 99.4; O2SAT 95
[2024-11-22 18:56] VITALS: BP 132/98; TEMP 96.5; O2SAT 96
[2024-11-22 20:00] VITALS: BP 135/86; TEMP 98.8; O2SAT 98
[2024-11-22 20:09] VITALS: BP 140/68; TEMP 98.1; O2SAT 97
[2024-11-22] MEDS: busPIRone 5 MG TAB PO SCH (22:51)
[2024-11-23 05:32] VITALS: BP 121/58; TEMP 97.5; O2SAT 96
[2024-11-23] MEDS: FLUoxetine 20 MG CAP PO SCH (08:46)
[2024-11-23 12:00] VITALS: BP 116/56; TEMP 97.7; O2SAT 94
[2024-11-23 20:46] VITALS: BP 143/71; TEMP 97.9; O2SAT 91
[2024-11-24 06:20] VITALS: BP 141/65; TEMP 98.1; O2SAT 95
[2024-11-24 08:21] VITALS: BP 139/67
[2024-11-24] MEDS ORDERED: XARE10TA PO (10:30)
== END 2024-11-24 11:17 | DRG 522 ==
LOC: EDBD 08:35 → M ED 11:06 → M ED INP 11:07 → M PCU 19:54 → M MSPAV 11-22 20:06
PROVIDERS: ADMIT General Practice; ATTEND General Practice
PROC: 0SRR0JZ Replacement of Right Hip Joint, Femoral Surface with Synthetic Substitute, Open Approach (ICD-10-PCS; principal; 2024-11-19 13:45)
DX: S72.001A Fracture of unspecified part of neck of right femur, initial encounter for closed fracture (principal); I16.0 Hypertensive urgency; I50.9 Heart failure, unspecified; K21.9 Gastro-esophageal reflux disease without esophagitis; I11.0 Hypertensive heart disease with heart failure; M81.0 Age-related osteoporosis without current pathological fracture; Z66 Do not resuscitate; W18.30XA Fall on same level, unspecified, initial encounter; Y92.129 Unspecified place in nursing home as the place of occurrence of the external cause; D72.829 Elevated white blood cell count, unspecified; F03.90 Unspecified dementia, unspecified severity, without behavioral disturbance, psychotic disturbance, mood disturbance, and anxiety; Z85.828 Personal history of other malignant neoplasm of skin; Z88.2 Allergy status to sulfonamides; Z88.0 Allergy status to penicillin; Z88.5 Allergy status to narcotic agent; Z88.8 Allergy status to other drugs, medicaments and biological substances; Z79.899 Other long term (current) drug therapy; Z91.048 Other nonmedicinal substance allergy status

== ENCOUNTER → 2024-11-26 | Outpatient (REF) ==
[~2024-11-26] MED LIST changes: +ACET-683 PO; +AMLO1TAB25 PO; +BUSP15TA47 PO; +D-20TAB PO; +FLUO40CA PO; +HYDR-161 PO; +OXYC-517 PO; +PANT40TA29 PO; +REXU1TAB4 PO; +SERO1TAB3 PO; +THERTAB52 PO; +VIAC1CHW PO; +XARE10TA PO
[2024-11-26 13:31] LABS: PLATELET COUNT, AUTOMATED 498 10^3/uL (150-450)
[2024-11-26 13:57] LABS: CALCIUM LEVEL 8.9 MG/DL (8.3-10.6); CARBON DIOXIDE LEVEL 23.0 MMOL/L (20-31); CHLORIDE LEVEL 104.0 MMOL/L (98-107); CREATININE FOR GFR 0.86 MG/DL (0.55-1.30); GLOMERULAR FILTRATION RATE 69.1 (>39); POTASSIUM SERUM 5.0 MMOL/L (3.5-5.1); SODIUM LEVEL 139.0 MMOL/L (136-145)
== END ==
PROVIDERS: ATTEND Internal Medicine
DX: S72.001D Fracture of unspecified part of neck of right femur, subsequent encounter for closed fracture with routine healing (principal)

== ENCOUNTER → 2024-11-26 | Outpatient (REF) | payer MEDICARE | PROVIDERS: ATTEND Internal Medicine | DX: S72.001D Fracture of unspecified part of neck of right femur, subsequent encounter for closed fracture with routine healing (principal); Z53.8 Procedure and treatment not carried out for other reasons ==

== ENCOUNTER → 2024-12-02 | Outpatient (CLI) | payer MEDICARE | LOC: M RAD 15:21 | PROVIDERS: ATTEND Physician Assistant | DX: S72.051D Unspecified fracture of head of right femur, subsequent encounter for closed fracture with routine healing (principal) ==

== ENCOUNTER → 2024-12-03 | Outpatient (REF) | payer MEDICARE ==
[2024-12-03 11:21] LABS: PLATELET COUNT, AUTOMATED 731 10^3/uL (150-450)
[2024-12-03 12:09] LABS: CALCIUM LEVEL 9.1 MG/DL (8.3-10.6); CARBON DIOXIDE LEVEL 21.0 MMOL/L (20-31); CHLORIDE LEVEL 107.0 MMOL/L (98-107); CREATININE FOR GFR 0.7 MG/DL (0.55-1.30); GLOMERULAR FILTRATION RATE 88.5 (>39); POTASSIUM SERUM 4.2 MMOL/L (3.5-5.1); SODIUM LEVEL 137.0 MMOL/L (136-145)
== END ==
PROVIDERS: ATTEND Internal Medicine
DX: S72.001D Fracture of unspecified part of neck of right femur, subsequent encounter for closed fracture with routine healing (principal); Z79.899 Other long term (current) drug therapy

== ENCOUNTER → 2024-12-10 | Outpatient (REF) ==
[2024-12-10 11:51] LABS: PLATELET COUNT, AUTOMATED 569 10^3/uL (150-450)
[2024-12-10 12:21] LABS: CALCIUM LEVEL 9.4 MG/DL (8.3-10.6); CARBON DIOXIDE LEVEL 24.0 MMOL/L (20-31); CHLORIDE LEVEL 104.0 MMOL/L (98-107); CREATININE FOR GFR 0.73 MG/DL (0.55-1.30); GLOMERULAR FILTRATION RATE 84.1 (>39); POTASSIUM SERUM 4.5 MMOL/L (3.5-5.1); SODIUM LEVEL 139.0 MMOL/L (136-145)
== END ==
PROVIDERS: ATTEND Internal Medicine
DX: S72.91XD Unspecified fracture of right femur, subsequent encounter for closed fracture with routine healing (principal)

== ENCOUNTER → 2025-01-14 | Outpatient (REF) | payer MEDICARE ==
[2025-01-14 10:55] LABS: PLATELET COUNT, AUTOMATED 353 10^3/uL (150-450)
[2025-01-14 11:24] LABS: CALCIUM LEVEL 9.1 MG/DL (8.3-10.6); CARBON DIOXIDE LEVEL 27.0 MMOL/L (20-31); CHLORIDE LEVEL 106.0 MMOL/L (98-107); CREATININE FOR GFR 0.74 MG/DL (0.55-1.30); GLOMERULAR FILTRATION RATE 82.8 (>39); POTASSIUM SERUM 4.7 MMOL/L (3.5-5.1); SODIUM LEVEL 143.0 MMOL/L (136-145)
== END ==
PROVIDERS: ATTEND Internal Medicine
DX: S72.001D Fracture of unspecified part of neck of right femur, subsequent encounter for closed fracture with routine healing (principal); Z79.899 Other long term (current) drug therapy

== ENCOUNTER → 2025-02-02 | Outpatient (CLI) | payer MEDICARE | LOC: M SOG 07:48 | PROVIDERS: ATTEND Physician Assistant | DX: S72.001D Fracture of unspecified part of neck of right femur, subsequent encounter for closed fracture with routine healing (principal) ==